=== PATIENT | male | born 1970 | race Caucasian/White ===

== ENCOUNTER 2020-10-24 09:55 | Emergency (ER) | payer SELFPAY ==
[~2020-10-24] VITALS: Ht 175.3 cm; Wt 62.3 kg
--- NOTE | 2020-10-24 10:07 | NUR ---
PATIENT BIB EMS WITH CHIEF C/O ETOH. PER EMS [facility] CALLED TO HAVE THEM PICK PATIENT UP WHO WAS SLEEPING ON STEPS NEAR [place] [address]. EMS REPORTS PATIENT HAS BEEN DRINKING SINCE 1000 PM LAST NIGHT. VSS EN ROUTE, NO INTERVENTIONS PERFORMED. UPON ASSESSMENT PATIENT IS SLURRING HIS WORDS, UNCOOPERATIVE WITH STAFF, REFUSING TO HAVE VITALS TAKEN, DOES NOT ANSWER QUESTIONS ABOUT HIS HISTORY, UNABLE TO GET ANY INFORMATION. WHEN ASKED IF PATIENT HAS ANY ALLERGIES TO MEDICATIONS HE SHRUGS AND STATES "I DON'T KNOW." PATIENT YELLED "FUCK OFF" WHEN ASKED IF HE WOULD TAKE HIS JACKET OFF. ALEXUS, CALL LIGHT WITHIN REACH.
--- NOTE | 2020-10-24 10:23 | NUR ---
URINAL PROVIDED TO PATIENT, UNABLE TO OBTAIN BP OR TEMP AT THIS TIME, PATIENT NOT COOPERATING.
--- NOTE | 2020-10-24 10:56 | NUR ---
PATIENT RESTING IN GURNEY WITH EYES CLOSED, RESP EVEN AND UNLABORED, SIDE RAILS UP X2, URINAL WITHIN REACH, CALL LIGHT AT SIDE.
--- NOTE | 2020-10-24 11:55 | NUR ---
PATIENT RESTING IN GURNEY WITH EYES CLOSED, RESP EVEN AND UNLABORED, SIDE RAILS UP X2, URINAL WITHIN REACH, CALL LIGHT AT SIDE. MTF.
--- NOTE | 2020-10-24 12:28 | NUR ---
FOOD TRAY ORDERED.
--- NOTE | 2020-10-24 12:43 | NUR ---
MEAL TRAY PROVIDED TO PATIENT.
--- NOTE | 2020-10-24 12:56 | NUR ---
PATIENT SITTING IN GURNEY, EATING MEAL, NADN, CALL LIGHT WITHIN REACH.
--- NOTE | 2020-10-24 13:12 | NUR ---
Patient given discharge instructions and they have confirmed that they understand the instructions. Patient stable and ambulatory with steady gait from ED.
== END 2020-10-24 13:13 | disposition home or self-care (01) ==
LOC: ED 13:00
DX: F10.220 Alcohol dependence with intoxication, uncomplicated (principal); Y90.0 Blood alcohol level of less than 20 mg/100 ml
CPT/HCPCS: 99283